=== PATIENT | female | born 1960 | race Caucasian/White ===

== ENCOUNTER 2017-11-05 16:06 | Outpatient (CLI) | payer BC, OTHER ==
--- NOTE | 2017-11-07 11:51 | Mammography Report ---
BILATERAL SCREENING MAMMOGRAM: 11/05/2017 COMPARISON: Mammogram 09/30/2013. INDICATION: Screening. TECHNIQUE: Routine CC and MLO projections were obtained of the breasts. FINDINGS: The breast parenchyma is extremely dense, which may limit the sensitivity of mammography. There are waxing and waning cysts, which are less conspicuous on today's exam. In other regards, no dominant mass, architectural distortion or concerning cluster of microcalcifications are seen. IMPRESSION: 1. BI-RADS CATEGORY 2. BENIGN FINDINGS. 2. RECOMMEND ANNUAL SCREENING MAMMOGRAM. STANDARD QUALIFYING STATEMENTS: 1. This examination was reviewed with the aid of Computer-Aided Detection (CAD) . 2. A negative or benign imaging report should not delay biopsy if clinically suspicious findings are present. Consider surgical consultation if warranted. More than 5 % of cancers are not identified by imaging. 3. Dense breasts may obscure an underlying neoplasm. TD: 11/07/2017 11:51 UMER
== END 2017-11-05 16:07 | disposition home or self-care (01) ==
LOC: DI.N 16:06
PROVIDERS: ATTEND Physician Assistant
DX: Z12.31 Encounter for screening mammogram for malignant neoplasm of breast (principal)
CPT/HCPCS: 77067

== ENCOUNTER 2018-12-18 07:52 | Outpatient (CLI) | payer OTHER ==
--- NOTE | 2018-12-18 08:53 | Mammography Report ---
Reason: BREAST CA SCREEN Procedure Date: 12/18/2018 Accession Number: [id number] / [id number] Procedure: DEVANG - Screening Mammo w/Carlito CPT Code: FULL RESULT: EXAM: Screening Mammo w/Carlito DATE: 12/18/2018 8:29 AM CLINICAL HISTORY: Screening encounter. History of benign needle breast biopsy, no reported risk factors. TECHNIQUE: (B) - Bilateral CC, laterally exaggerated CC, MLO views were obtained. COMPARISON: 11/05/2017 through 09/07/2011. PARENCHYMAL PATTERN: (A) - The breast(s) demonstrate(s) scattered fibroglandular densities. FINDINGS: There are typically benign calcifications. A right breast well-circumscribed isodense nodule 8.9 cm from the nipple in the upper lateral breast is delineated on 3-D image 30 of the MLO view and image 36 of the cc view and corresponds to the location of a previously demonstrated waxing and waning cysts dating as far back as 2012, typically benign. There are no suspicious masses, calcifications, or areas of distortion. IMPRESSION: Benign findings. BI-RADS category 2. RECOMMENDATION: (ANNUAL) - Recommend routine annual screening mammography. BI-RADS CATEGORY: (2) - Benign Findings. STANDARD QUALIFYING STATEMENTS: 1. This examination was not reviewed with the aid of Computer-Aided Detection (CAD). 2. A negative or benign imaging report should not preclude biopsy if clinically suspicious findings are present. 3. Dense breasts may obscure an underlying neoplasm. 4. This examination was reviewed with the aid of 3D breast imaging (tomosynthesis).
== END 2018-12-18 07:53 | disposition home or self-care (01) ==
LOC: DI 07:52
PROVIDERS: ATTEND Physician Assistant Medical
DX: Z12.31 Encounter for screening mammogram for malignant neoplasm of breast (principal)
CPT/HCPCS: 77063; 77067

== ENCOUNTER 2019-09-20 06:37 | Emergency (ER) | payer OTHER ==
[2019-09-20] MEDS ORDERED: CHERRY SYRUP 10 ML UDC PO ONE (07:14)
[2019-09-20] MEDS ORDERED: LIDOCAINE 1% 2 ML VIAL MC ONE (07:14)
[2019-09-20] MEDS ORDERED: DEXAMETHASONE 10 MG/ML VIAL PO STA (07:14)
[2019-09-20] MEDS ORDERED: cefTRIAXone 1 GM VIAL IM STA (07:14)
--- NOTE | 2019-09-20 07:17 | ED Physician Documentation ---
PD HPI HEENT - Stated complaint Stated Complaint: LT EAR PX - Chief complaint Chief Complaint: Heent - History obtained from History obtained from: Patient, Family - History of Present Illness Timing - onset: Yesterday Timing - duration: Days (1) Timing - details: Abrupt onset, Still present Location: Other (parotid gland on left) Improves: Medication Associated symptoms: Facial swelling. No: Fever, Congestion, Rhinorrhea, Trismus, Unable to swallow, Cough Similar symptoms before: Has not had sx before Recently seen: Other - Additional information Additional information: Previously well 59-year-old female awoke yesterday morning with swelling to the left side of her face and pain in her left ear. She went into see someone at an urgent care and was diagnosed with parotiditis and placed on an antibiotic she was given a single dose yesterday and the pharmacy was not open and the patient is here this morning in fear for her life because her swelling progressed overnight and she was unable to sleep fearing an overwhelming infection. She does not feel ill. Review of Systems Constitutional: denies: Fever, Chills Eyes: denies: Decreased vision Ears: reports: Ear pain. denies: Loss of hearing, Drainage/discharge Nose: denies: Rhinorrhea / runny nose, Congestion Throat: denies: Oral lesions / sores, Sore throat Respiratory: denies: Dyspnea, Cough GI: denies: Vomiting PD PAST MEDICAL HISTORY - Past Medical History Past Medical History: No Cardiovascular: None GI: None : None Psych: None Musculoskeletal: None Derm: Eczema - Past Surgical History Past Surgical History: Yes HEENT: Tonsil/Adenoidectomy - Present Medications Home Medications: Ambulatory Orders Medication Instructions Recorded Confirmed No Known Home Medications 02/08/13 02/08/13 - Allergies Allergies/Adverse Reactions: Allergies Allergy/AdvReac Type Severity Reaction Status Date / Time No Known Drug Allergies Allergy Verified 09/20/19 06:55 - Social History Does the pt smoke?: No Smoking Status: Never smoker Does the pt drink ETOH?: Yes Does the pt have substance abuse?: No - Immunizations Immunizations are current?: Yes - POLST Patient has POLST: No PD ED PE NORMAL - Vitals Vital signs reviewed: Yes (hypertension) - General General: Alert and oriented X 3, No acute distress, Well developed/nourished - HEENT HEENT: Atraumatic, PERRL, EOMI, Other (There is swelling to the left side of the face over the proximal parotid gland. There is mildly tenderness there is no overlying erythema. The left TM has some mild erythema along the umbo the right is clear the pharynx is clear there is no obvious palpable mass along the parotid gland duct. 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, No motor deficit, No sensory deficit, Normal speech Eye Opening: Spontaneous Motor: Obeys Commands Verbal: Oriented GCS Score: 15 - Psych Psych: Normal mood, Normal affect Results - Vitals Vitals: Vital Signs - 24 hr 09/20/19 06:40 Temperature 36.7 C Heart Rate 72 Respiratory 16 Rate Blood Pressure 143/61 H O2 Saturation 97 Oxygen O2 Source Room air PD MEDICAL DECISION MAKING - ED course Complexity details: reviewed old records, considered differential, d/w patient, d/w family ED course: 59-year-old female with parotid gland swelling that is acute appears to have obstruction of the parotid duct. I am not able to identify it a specific mass along the duct. The patient is administered dexamethasone 10 mg orally and 1 g of Rocephin IM. She is referred to ENT if she does not have resolution of her symptoms over the next day. Departure - Departure Disposition: 01 Home, Self Care Clinical Impression: Parotid duct obstruction Condition: Stable Instructions: Stensen Duct Obstruction Tx Follow-Up: [facility] [place] [Provider Group] Comments: Today you were giving a dose of dexamethasone 10 mg orally and Rocephin 1 g intramuscular. Continue to use the warm compress and use any method that will stimulate the gland to secrete. Massage or "milk" the duct by placing one finger on the outside of the mouth and one finger over the duct and sweep forward. If you do not have improvement by tomorrow or have worsening follow up with the ENT in [place].
[2019-09-20 07:46] VITALS: BP 145/83
== END 2019-09-20 07:46 | disposition home or self-care (01) ==
LOC: ED 06:37
DX: K11.8 Other diseases of salivary glands (principal)
CPT/HCPCS: 96372; 99283; 99284; A9270; 96374

== ENCOUNTER 2020-09-22 18:41 | Outpatient (CLI) | payer OTHER | END 2020-09-22 18:42 | disposition home or self-care (01) | LOC: COV 18:41 | PROVIDERS: ATTEND Family Medicine | DX: U07.1 COVID-19 (principal) ==

== ENCOUNTER 2021-08-07 14:40 | Outpatient (CLI) | payer OTHER ==
--- NOTE | 2021-08-08 14:03 | Mammography Report ---
BILATERAL DIGITAL SCREENING MAMMOGRAM 3D/2D: 08/07/2021 CLINICAL: Routine screening. Comparison is made to exams dated: 04/04/2020 mammogram, 12/18/2018 mammogram, 11/05/2017 mammogram, 09/30/2013 mammogram, 09/08/2012 mammogram, and 09/25/2011 ultrasound - [facility]. Ther e are scattered fibroglandular elements in both breasts. There is a mole marker on the left breast. No significant masses, calcifications, or other findings are seen in either breast. There has been no significant interval change. IMPRESSION: NEGATIVE There is no mammographic evidence of malignancy. A 1 year screening mammogram is recommended. This exam was interpreted at Station ID: [id number]. NOTE: For mammograms, a report in lay terms will be sent to the patient. Approximately 15% of breast malignancies will not be visualized mammographically. In the management of a palpable breast mass, a negative mammogram must not discourage biopsy of a clinically suspicious lesion. Electronically Signed By: Sam Gomez acr/penrad:08/07/2021 15:59:15 ACR BI-RADS Category 1: Negative 3341F PARENCHYMAL PATTERN: (A) - The breast(s) demonstrate(s) scattered fibroglandular densities. BI-RADS CATEGORY: (1) - 1 RECOMMENDATION: (ANNUAL) - Recommend routine annual screening mammography. [id number] 1 year screening LATERALITY: (B)
== END 2021-08-07 14:41 | disposition home or self-care (01) ==
LOC: DI.N 14:40
DX: Z12.31 Encounter for screening mammogram for malignant neoplasm of breast (principal)

== ENCOUNTER 2022-06-28 16:04 | Outpatient (CLI) | payer OTHER ==
--- NOTE | 2022-06-28 16:43 | XRAY Report ---
PROCEDURE: Foot 3 View RT INDICATIONS: RT FOOT PAIN TECHNIQUE: 3 views of the foot were acquired. COMPARISON: None FINDINGS: Bones: No fractures or dislocations. Minimal degenerative changes. No suspicious bony lesions. No erosions or other evidence of inflammatory arthropathy. Soft tissues: No tibiotalar joint effusion. Achilles tendon appears normal. IMPRESSION: 1. No acute abnormality. 2. Minimal degenerative changes Reviewed by: Sam Gomez on 06/28/2022 4:42 PM PDT Approved by: Sam Gomez on 06/28/2022 4:42 PM PDT Station ID: [id number]
== END 2022-06-28 16:05 | disposition home or self-care (01) ==
LOC: DI 16:04
PROVIDERS: ATTEND Podiatrist
DX: M19.071 Primary osteoarthritis, right ankle and foot (principal)

== ENCOUNTER 2022-08-31 09:50 | Day surgery (SDC) | payer OTHER ==
[~2022-08-31 09:50] MED LIST: PROPOFOL 500 MG/50 ML 500 MG/50 ML VIAL ONE
[2022-08-31] MEDS ORDERED: LACTATED RINGERS 1,000 ML IV ONE ×2 (10:07→11:33)
--- NOTE | 2022-08-31 10:41 | ANESTHESIA ---
Pre-Anesthesia VS, & Labs - Diagnosis hx of colon polyps - Procedure colonoscopy Vital Signs: Temp Pulse Resp BP Pulse Ox O2 Flow Rate 36.5 C 88 23 139/76 H 100 0 08/31/22 10:08 08/31/22 10:08 08/31/22 10:08 08/31/22 10:08 08/31/22 10:08 08/31/22 10:08 Height: 5 ft 7 in Weight (kg): 82.9 kg Body Mass Index: 28.6 BMI Classification: Overweight - NPO >8 hours - Is Patient ?: No Home Medications and Allergies No Known Home Medications 02/08/13 Allergies/Adverse Reactions: Allergies Allergy/AdvReac Type Severity Reaction Status Date / Time No Known Drug Allergies Allergy Verified 09/20/19 06:55 Anes History & Medical History - Anesthetic History Anesthesia Complications: reports: No previous complications Family history of Anesthesia Complications: Denies Family history of Malignant Hyperthermia: Denies - Medical History Cardiovascular: reports: None Gastrointestinal: reports: None Urinary: reports: None Musculoskeletal: reports: None Skin: reports: Eczema Smoking Status: Never smoker - Surgical History General: reports: Cholecystectomy, Colonoscopy Eyes Ears Nose Throat (EENT): reports: Tonsil/Adenoidectomy Exam General: Alert, Oriented x3, Cooperative Dental: Partials Upper Mouth Openin Fingerbreadth Neck Mobility: Normal Mallampati classification: II Thyromental Distance: 4-6 cm Respiratory: Lungs clear Cardiovascular: Regular rate Plan Anesthesia Type: General, Total IV Consent for Procedure(s) Verified and Reviewed: Yes Code Status: Attempt Resuscitation ASA classification: 2-Mild systemic disease Is this case an emergency?: No
[2022-08-31] MEDS ORDERED: SIMETHICONE 40 MG/0.6 ML 30 ML BOTTLE PO ONE (11:16)
[2022-08-31 12:21] VITALS: BP 131/67
--- NOTE | 2022-08-31 13:06 | ANESTHESIA POST OP EVALUATION ---
Anesthesia Post Eval - Post Anesthesia Eval Vitals: Last Vital Signs Temp 36.2 C L 08/31/22 12:20 Pulse 75 08/31/22 12:20 Resp 16 08/31/22 12:20 BP 131/67 H 08/31/22 12:20 Pulse Ox 100 08/31/22 12:20 O2 Flow Rate 0 08/31/22 10:08 CV Function Including HR & BP: Stable Pain Control: Satisfactory Nausea & Vomiting: Negative Mental Status: Baseline Respiratory Status: Airway Patent Hydration Status: Satisfactory Anesthesia Complications: None
== END 2022-08-31 09:51 | disposition home or self-care (01) ==
LOC: SDS 09:50
PROVIDERS: ATTEND Surgery
PROC: 0DBK8ZZ Excision of Ascending Colon, Via Natural or Artificial Opening Endoscopic (ICD-10-PCS; principal; 2022-08-31 11:00)
DX: Z12.11 Encounter for screening for malignant neoplasm of colon (principal); K63.5 Polyp of colon; K57.30 Diverticulosis of large intestine without perforation or abscess without bleeding
CPT/HCPCS: 45380; A9270; J7120

== ENCOUNTER 2022-10-29 15:15 | Outpatient (CLI) | payer OTHER ==
--- NOTE | 2022-10-30 10:50 | Ultrasound Report ---
PROCEDURE: Head or Neck Soft Tissue INDICATIONS: LEFT PAROTID SWELLING TECHNIQUE: Real time scanning was performed of the neck region of interest, with image documentation . COMPARISON: None. FINDINGS: At the area of palpable abnormality, there is a lymph node measuring 4 mm in short axis. Co ntralateral image shows a similar lymph node in the right parotid. IMPRESSION: In the area of abnormality in the left parotid, a normal-appearing lymph node is seen measuring 4 mm in short axis. Contralateral right parotid images are symmetric. Recommend clinical follow-up. Reimag ing could be obtained if symptoms worsen. Reviewed by: Edmund Hughes MD on 10/30/2022 10:49 AM PST Approved by: Edmund Hughes MD on 10/30/2022 10:49 AM PST Station ID: [id number]
== END 2022-10-29 15:16 | disposition home or self-care (01) ==
LOC: DI 15:15
PROVIDERS: ATTEND Student in an Organized Health Care Education/Training Program
DX: K11.9 Disease of salivary gland, unspecified (principal)

== ENCOUNTER 2023-08-08 13:29 | Outpatient (CLI) | payer MEDICARE ==
--- NOTE | 2023-08-09 09:41 | Mammography Report ---
BILATERAL DIGITAL SCREENING MAMMOGRAM 3D/2D: 08/08/2023 CLINICAL: Routine screening. Comparison is made to exams dated: 08/07/2021 mammogram, 04/04/2020 mammogram, and 12/18/2018 mammogra m - [facility]. Both breasts are heterogeneously dense, which may obscure small masses (category c / 51-75% glandular tissue). There is a new oval focal asymmetry in the right breast at 10 o'clock middle depth. No other significant masses, calcifications, or other findings are seen in either breast. IMPRESSION: INCOMPLETE: NEEDS ADDITIONAL IMAGING EVALUATION The new oval focal asymmetry in the right breast resembles a cyst and is indeterminate. Additional v iews with possible ultrasound are recommended. Based on the Tyrer Cuzick model (a risk assessment model) the patients lifetime risk is 9.5% and her 10 year risk is 4.6%. According to the ACR, ACS, and NCCN guidelines, an annual breast MRI exam sukhi g with mammogram is recommended if the patients lifetime risk is 20% or greater. This exam was interpreted at Station ID: [id number]. NOTE: For mammograms, a report in lay terms will be sent to the patient. Approximately 15% of breast malignancies will not be visualized mammographically. In the management of a palpable breast mass, a negative mammogram must not discourage biopsy of a clinically suspicious lesion. Electronically Signed By: Abilio scott/elsa:08/08/2023 15:53:38 ACR BI-RADS Category 0: Incomplete 3340F PARENCHYMAL PATTERN: (D) - The breast(s) demonstrate(s) heterogeneously dense fibroglandular naomi barlow. BI-RADS CATEGORY: (0) - 0 Mammo and [place] [id number] Immediate follow-up LATERALITY: (R)
== END 2023-08-08 13:30 | disposition home or self-care (01) ==
LOC: DI.N 13:29
DX: Z12.31 Encounter for screening mammogram for malignant neoplasm of breast (principal); R92.333 Mammographic heterogeneous density, bilateral breasts; R92.8 Other abnormal and inconclusive findings on diagnostic imaging of breast

== ENCOUNTER 2023-08-28 08:30 | Outpatient (CLI) | payer MEDICARE ==
--- NOTE | 2023-08-28 16:49 | Ultrasound Report ---
LIMITED ULTRASOUND OF RIGHT BREAST: 08/28/2023 CLINICAL: Patient returns today to evaluate a focal asymmetry in the right breast. Comparison is made to exams dated: 08/28/2023 mammogram, 08/08/2023 mammogram, 08/07/2021 mammogram, mammogram, 12/18/2018 mammogram, and 11/05/2017 mammogram - [facility]. Color flow ultrasound of the right breast 9-10 o'clock region was performed on the areas of interest. Gomez scale images of the real-time examination were reviewed. There is a 1.1 cm x 0.5 cm x 0.8 cm oval cyst in the right breast at 10 o'clock posterior depth. Thi s oval cyst is hypoechoic with posterior acoustic enhancement. IMPRESSION: BENIGN There is no sonographic evidence of malignancy. The 1.1 cm x 0.5 cm x 0.8 cm oval cyst in the right breast is consistent with a simple cyst and is be nign. Return to annual mammogram screening schedule is recommended. This exam was interpreted at Station ID: [id number]. Electronically Signed By: Paige rawls/:08/28/2023 09:10:27 Ultrasound BI-RADS: 2 Benign BI-RADS CATEGORY: (2) - 2 Mammogram [id number] return to screening LATERALITY: (B)
--- NOTE | 2023-08-28 16:49 | Mammography Report ---
UNILATERAL RIGHT DIGITAL DIAGNOSTIC MAMMOGRAM 3D/2D WITH SPOT COMPRESSION: 08/28/2023 CLINICAL: Patient returns today to evaluate a focal asymmetry in the right breast. Comparison is made to exams dated: 08/08/2023 mammogram, 08/07/2021 mammogram, 04/04/2020 mammogram, 12/18/2018 mammogram, 11/05/2017 mammogram, and 09/30/2013 mammogram - [facility]. The right breast is heterogeneously dense, which may obscure small masses (category c / 51-75% glandu lar tissue). There is an oval focal asymmetry in the right breast at 10 o'clock middle depth. This is seen in add itional views. No other significant masses or calcifications are seen in the breast. IMPRESSION: INCOMPLETE: NEEDS ADDITIONAL IMAGING EVALUATION The oval focal asymmetry in the right breast resembles a cyst and is indeterminate. A targeted ultra sound of the right breast is recommended and will be performed immediately following this exam. Based on the Tyrer Cuzick model (a risk assessment model) the patients lifetime risk is 9.5% and her 10 year risk is 4.6%. According to the ACR, ACS, and NCCN guidelines, an annual breast MRI exam sukhi g with mammogram is recommended if the patients lifetime risk is 20% or greater. This exam was interpreted at Station ID: [id number]. NOTE: For mammograms, a report in lay terms will be sent to the patient. Approximately 15% of breast malignancies will not be visualized mammographically. In the management of a palpable breast mass, a negative mammogram must not discourage biopsy of a clinically suspicious lesion. Electronically Signed By: Paige Wagner M.D. lk/:08/28/2023 08:51:52 ACR BI-RADS Category 0: Incomplete 3340F PARENCHYMAL PATTERN: (D) - The breast(s) demonstrate(s) heterogeneously dense fibroglandular pareduardo barlow. BI-RADS CATEGORY: (0) - 0 Ultrasound [id number] Immediate follow-up LATERALITY: (B)
== END 2023-08-28 08:31 | disposition home or self-care (01) ==
LOC: DI 08:30
PROVIDERS: ATTEND Physician Assistant
DX: N60.01 Solitary cyst of right breast (principal)

== ENCOUNTER 2024-04-13 15:17 | Outpatient (CLI) | payer MEDICARE ==
--- NOTE | 2024-04-14 14:10 | DEXA Report ---
PROCEDURE: Dexa Spine and/or Hip INDICATIONS: POST MENOPAUSAL TECHNIQUE: Dual energy x-ray absorptiometry (DXA) was performed on a [employer] System. Regions measur ed are the AP Spine, femoral neck, and if needed forearm. COMPARISON: None FINDINGS: Lumbar Spine: Bone Mineral Density: 1.497 g/cm/cm,T score: 2.6. Left Femoral Neck: Bone Mineral Density: 1.004 g/cm/cm, T score: -0.2. Left Hip: Bone Mineral Density: 0.997 g/cm/cm,T score: -0.1. FRAX risk factors: None given. Listed due to normal bone mineral density. (T score greater or equal to -1.0: NORMAL) (T score from -1.1 to -2.4: OSTEOPENIA) (T score less than or equal to -2.5 to: OSTEOPOROSIS) Impression: By WHO criteria, this patient has normal bone mineral density. Patients with diagnosis of osteoporosis or osteopenia should have regular bone mineral density assess ment. For those eligible for Medicare, routine testing is allowed once every 2 years. Testing frequ ency can be increased for patients who have rapidly progressing disease or for those who are receivin g medical therapy to restore bone mass. Reviewed by: Maciel Viera MD on 04/14/2024 2:08 PM PDT Approved by: Maciel Viera MD on 04/14/2024 2:08 PM PDT Station ID: [id number]
== END 2024-04-13 15:18 | disposition home or self-care (01) ==
LOC: DI 15:17
PROVIDERS: ATTEND Physician Assistant
DX: Z78.0 Asymptomatic menopausal state (principal)